=== PATIENT | male | born 1945 | race Caucasian/White ===

== ENCOUNTER 2018-06-23 15:24 | Day surgery (SDC) | payer MEDICARE ==
[~2018-06-23 15:24] MED LIST: Dexamethasone 20 MG/5 ML VIAL ONE; Lidocaine 1% PF 5 ML VIAL ONE; Ondansetron HCl/PF 4 MG/2 ML Vial ONE; PROPOFOL 200 MG/20 ML VIAL ONE; ePHEDrine/0.9% NaCl/PF SYRINGE 50 mg/10 ml ONE
[2018-06-23] MEDS ORDERED: Sodium Chloride 0.9% 10 ML ONE ×2 (16:38→17:02)
[2018-06-23] MEDS ORDERED: Betamet Acet/Betamet Na Ph 30 MG/5 ML VIAL ONE (16:38)
[2018-06-23] MEDS ORDERED: Bupivacaine PF 0.5% 30 ML VIAL ONE (16:38)
[2018-06-23] MEDS ORDERED: Bacitracin Zinc Ointment 30 gm TUBE ONE (16:38)
[2018-06-23] MEDS ORDERED: Lidocaine 2% 10 ML INJ ONE (16:38)
[2018-06-23] MEDS ORDERED: Heparin 10,000 UNITS/1 ML VIAL ONE (16:39)
[2018-06-23] MEDS ORDERED: Hetastarch 6% 500 ML 0 ML ONE (16:39)
[2018-06-23] MEDS ORDERED: CEFAZOLIN/Water 2 GM/20 ML SYRINGE ONE (17:06)
[2018-06-23] MEDS ORDERED: Fentanyl 250 MCG/5 ML VIAL ONE (17:30)
--- NOTE | 2018-06-23 18:29 | RAD ---
TWO VIEWS RIGHT HAND: 06/23/18 INDICATION: Preprocedure examination for the Operating Room. COMPARISON: None. FINDINGS: There is scattered osteoarthrosis of the right hand. No definite acute fracture is evident. No radiop aque foreign body is noted. IMPRESSION: Scattered osteoarthrosis of the right hand. POS: [facility]
[2018-06-23] MEDS ORDERED: Ketorolac Tromethamine 30 MG/ML VIAL ONE (19:55)
--- NOTE | 2018-06-24 13:02 | OP ---
PREOPERATIVE DIAGNOSES: Right small finger wound complex with full-thickness skin loss 10 cm finding the same with exposed nerve, but no nerve laceration. PROCEDURES PERFORMED: 1. Neuroplasty, small finger ulnar digital nerve under magnification. 2. Debridement of wound using the following techniques, A. Excisional technique. B. Depth down to, but not including the tendon sheath. 3. Instrumentation used as follows: [place] blade, 11 blade knife, tenotomy scissors, Adson's curett e, and irrigation, 2 liters normal saline, bulb syringe pressure with antibiotics inside. FINDINGS: 1. Minimum gross contamination with few particles removed carefully and some denuded fat. 2. Closure of wound, 8 cm, multiple layers. 3. Full-thickness skin graft to the right small finger palmar aspect proximal phalanx 2.5 x 1.0 cm. TOURNIQUET TIME: 32 minutes. COMPLICATIONS: None. INJECTABLE: The patient had a total of 20 mL of 0.5% Marcaine both metacarpophalangeal joint level a nd palmar block with no epinephrine. INDICATIONS/FINDINGS: Neuroplasty of the artery, nerve and the tendon intact all in aspect, but ther e was a full-thickness skin loss that could not be closed and so we had to do the graft in 2.5 cm x 1 cm full thickness. DESCRIPTION OF PROCEDURE: After successful general endotracheal anesthesia, the limb was prepped and draped. Timeout done appropriately examined and preoperatively shown intact digital nerves by 2 poi nt, flexion was intact, and interphalangeal was completely, so we got a tendon laceration, but they w ill need to be visualized because they were in the center of the wound. Once we exsanguinated the li mb, we inflated the tourniquet to 250 mmHg pressure, we were able to then do a neuroplasty and identi fied the entire neurovascular bundle beginning 1 cm proximal to the laceration and 5 mm distal to the zone of injury. Then, we evaluated tendon sheath. There was no violation of the tendon sheath what soever in this region. We then debrided by individually looking at every millimeter of the wound and removing any dirt parts including some from underneath the flaps of skin, they were not complete maciel mal violations. Then, once we had done this, we excised with the tenotomy scissors. The areas where the fat were completely denuded. We also finished irrigating with 2 liters normal saline with antib iotics inside and deflated the tourniquet to see whether the bleeding could be located. We obtained hemostasis. We closed the 10 to 10.5 cm wound with interrupted 4-0 nylon proximally, MP joint, and 5 -0 nylon distal. Then, we saw the defect which were all fat and therefore it was bleeding, therefore should have skin graft take. For this reason, we went to the proximal forearm just 1 cm distal antecubital fossa edge, and harvest ed a 3 cm long x 8 mm wide piece of skin, dermis and epidermis defatted, closed the donor defect with a running 4-0 Monocryl undyed and 4-0 nylon individual simple stitches. We then took the defatted g raft, 4 bolster sutures with 3-0 nylon opposite to each other, 2 on the ulnar and 2 on the ulnar side , running 6-0 chromic suture around the remaining portion of the graft and then put a bacitracin unde r Adaptic under mineral oil soaked cotton ball and tied this tightly in the two positions described a carlos to make a bolster effect. Circulation remained excellent, we then placed bacitracin, Adaptic, a nd all other wounds that were closed, 4 x 4s and Kerlix over these with the ring finger attached to t he small finger and then RON wrapped it from the small finger nail bed to above the elbow. The patie nt left the operating room without evidence of anesthetic or operative complication.
== END 2018-06-23 20:54 | disposition home or self-care (01) ==
LOC: SDC 15:24
PROVIDERS: ATTEND Orthopaedic Surgery Hand Surgery
PROC: 0HRFX73 Replacement of Right Hand Skin with Autologous Tissue Substitute, Full Thickness, External Approach (ICD-10-PCS; principal; 2018-06-23)
PROC: 01Q40ZZ Repair Ulnar Nerve, Open Approach (ICD-10-PCS; 2018-06-23)
PROC: 01Q40ZZ Repair Ulnar Nerve, Open Approach (ICD-10-PCS; 2018-06-23)
DX: S61.216A Laceration without foreign body of right little finger without damage to nail, initial encounter (principal)
CPT/HCPCS: A4216; J0131; J0702; J1100; J1644; J1885; J2001; J2405; J2704; J3010; J3490; S0020